=== PATIENT | female | born 1985 | race Hispanic/Latino ===

== ENCOUNTER 2018-11-22 06:51 | Day surgery (SDC) | payer OTHER ==
[2018-11-19 15:39] LABS: BASOPHILS % (AUTO) 0.7 % (0.0-5.0); EOSINOPHILS % (AUTO) 0.8 % (0.0-8.0); HEMATOCRIT 36.8 % (36-48); MEAN CORPUSCULAR HEMOGLOBIN 27.2 pg (27.0-33.0); MEAN CORPUSCULAR HGB CONC 32.4 g/dL (32.0-36.0); MEAN CORPUSCULAR VOLUME 83.8 fL (79-99); MONOCYTES % (AUTO) 6.2 % (3.0-13.0); NEUTROPHILS % (AUTO) 70.3 % (40.0-77.0); PLATELET COUNT (AUTO) 317 K/uL (130-400); RED BLOOD CELL COUNT(AUTO) 4.39 MIL/uL (4.00-5.50); RED CELL DISTRIBUTION WIDTH 14.5 % (11.0-15.5); WHITE BLOOD COUNT (AUTO) 9.5 K/uL (4.8-10.8)
[2018-11-19 16:02] VITALS: BP 175/85
[2018-11-19 16:18] LABS: CREATININE 0.7 mg/dL (0.5-1.5); POTASSIUM 3.8 mmol/L (3.5-5.1)
[2018-11-22] VITALS (20 sets, daily range): BP systolic 115–139; BP diastolic 51–77
[~2018-11-22] VITALS: Ht 152.4 cm; Wt 123.8 kg
[~2018-11-22 06:51] MED LIST: CEFAZOLIN 3GM /D5W 100ML 100 ML IV SCH
[2018-11-22] MEDS ORDERED: LACTATED RINGERS 1000ML 1,000 ML IV ONE (08:07)
[2018-11-22] MEDS: CEFAZOLIN SODIUM 1 GM VIAL ONE ×2 (08:20→08:45)
--- NOTE | 2018-11-22 08:20 | NUR ---
POTENTIAL FOR INFECTION: NO SHAVING NEEDED TO RIGHT KNEE / LEG ASSESSED PER JENNA SOLIMAN. WIPED RIGHT LEG / KNEE WITH DAVID: 2% CHLORHEXIDINE GLUCONATE CLOTH PATIENTS PRE-OP SKIN PREP.
[2018-11-22] MEDS ORDERED: ONDANSETRON HCL 4 MG/2 ML VIAL ONE (08:27)
[2018-11-22] MEDS ORDERED: MIDAZOLAM HCL 1 MG/ML 2ML VIAL ONE (08:27)
[2018-11-22] MEDS ORDERED: LIDOCAINE PF 2% 5ML ABBOJECT ONE (08:31)
[2018-11-22] MEDS ORDERED: PROPOFOL 10 MG/ML 20ML VIAL IV ONE (08:31)
[2018-11-22] MEDS ORDERED: ROCURONIUM 10MG/1ML SYR 10 MG/ML ML ONE (08:31)
[2018-11-22] MEDS ORDERED: ROPIVACAINE 0.5% 5MG/ML 30ML IJ ONE (08:33)
[2018-11-22] MEDS ORDERED: KETAMINE 50MG/ML SYRINGE 50 MG/ML DISP.SYRIN IV ONE (08:33)
[2018-11-22] MEDS ORDERED: DICL1PAT TD (08:41)
[2018-11-22] MEDS ORDERED: LIDOP TP (08:41)
[2018-11-22] MEDS ORDERED: MULT-1203 PO (08:41)
[2018-11-22] MEDS ORDERED: TYL3 PO (08:41)
[2018-11-22] MEDS ORDERED: CEFAZOLIN SODIUM 1 GM VIAL ONE (09:03)
[2018-11-22] MEDS ORDERED: MEPERIDINE-PF 25 MG/ML SYG ONE ×2 (09:08→11:22)
[2018-11-22] MEDS ORDERED: GLYCOPYRROLATE 1 MG/5 ML SYRINGE ONE (10:23)
[2018-11-22] MEDS ORDERED: NEOSTIGMINE 5MG/5ML SYR IV ONE (10:23)
[2018-11-22] MEDS ORDERED: LIDOCAINE HCL 2% 20ML ONE (10:27)
[2018-11-22] MEDS ORDERED: HYDR-4457 PO (10:37)
[2018-11-22] MEDS ORDERED: MELO-108 PO (10:37)
[2018-11-22] MEDS ORDERED: ASPI-1012 PO (10:37)
[2018-11-22] MEDS ORDERED: CEPH500B PO (10:40)
--- NOTE | 2018-11-22 12:05 | NUR ---
post op received pt from [facility], s/p right knee arthroscopy, dressing to right knee dry and intact, patient received nerve block able to slowly wiggle toes to right foot. pt awake and alert, vs stable on ARRIVAL. left left full range of motion neurovascuLAR checks wnl.
--- NOTE | 2018-11-22 12:35 | NUR ---
assess as per [facility]OO[facility] she was assisting patient to get dress with patient's sister assistance. once patient got up put weight on left knee to put on her pants patient felt weakness to her left leg and kneeled to to floor with assistance from [facility]. patient states "just felt weakness and my leg gave out". right knee operative knee assessed dressing dry and intact, no bleeding or new brusing noted. left leg with full range of motion , vs as follows bp 129/79, hr 72 , resp 16 , 02 sat 99 % on room air. pt states "feels right knee weak, numb, tingling, feels weird.Patient received nerve block to right knee. Dr. Wolf called and was informed of incident , he stated to keep patient longer in hospital then discharge home if patient stable. Will continue to monitor. Patient family at bedside.
--- NOTE | 2018-11-22 13:00 | NUR ---
dc dc instructions given to patients sister in law with rx, instructed on new med regimen and possible side effects. instructed to f/u with dr. leach and on dr. leach dc orders. patient awake and alert, denies any pain
--- NOTE | 2018-11-22 13:35 | NUR ---
dc pt dc home via [facility],no distress noted. denied any pain or discomforts. accompanied by sister in law kamar , patient right knee dressing dry and intact, patient states feels alot more to her right knee, fall precautions instructed to both her and her sister in law galvin. both verbalized understanding.
== END 2018-11-22 13:35 | disposition home or self-care (01) ==
LOC: DAH 06:51
PROVIDERS: ATTEND Orthopaedic Surgery
DX: M23.221 Derangement of posterior horn of medial meniscus due to old tear or injury, right knee (principal); M22.41 Chondromalacia patellae, right knee; M23.8X1 Other internal derangements of right knee; G89.29 Other chronic pain; Z79.82 Long term (current) use of aspirin; Z79.899 Other long term (current) drug therapy; Z98.51 Tubal ligation status; Z90.49 Acquired absence of other specified parts of digestive tract
CPT/HCPCS: 29881; 29888; 36415; 64447; 76942; 80048; 85025; A4215; A4221; A4222; A4223; A4649 ×5; A4663; A4930 ×2; A5120; A6223; C1713; C1762; C1776; J0690 ×2; J2001; J2175 ×2; J2250; J2405; J2704; J2710; J2795; J3490 ×3; J7120 ×2